=== PATIENT | female | born 1975 | race Caucasian/White ===

== ENCOUNTER → 2017-06-09 | Outpatient (CLI) | payer OTHER ==
[~2017-06-09] MED LIST: AMIT10TA PO; PENT100C2 PO; SHAKEOLOGY PO; TROS60CA3 PO
[2017-06-09 09:10] LABS: HEMATOCRIT 41.8 % (34.6-47.8); HEMOGLOBIN 14.1 g/dL (11.7-16.4); WHITE BLOOD COUNT 5.3 x10^3/uL (3.4-10)
[2017-06-09 09:15] LABS: PATH.CAST-FLAG NOT PRESENT; SPERM-FLAG NOT PRESENT; SRC-FLAG NOT PRESENT; XTAL-FLAG NOT PRESENT; YLC-FLAG NOT PRESENT
== END | disposition home or self-care (01) ==
LOC: STAR 08:07
PROVIDERS: ATTEND Obstetrics & Gynecology
DX: Z01.818 Encounter for other preprocedural examination (principal); N94.6 Dysmenorrhea, unspecified
CPT/HCPCS: 36415; 81001; 85025

== ENCOUNTER 2017-06-19 07:04 | Day surgery (SDC) | payer OTHER ==
[~2017-06-19] VITALS: Ht 165.1 cm; Wt 60.9 kg
[2017-06-19] MEDS ORDERED: EPINEPHRINE 1 MG/ML, 1ML ONE (07:32)
[2017-06-19] MEDS ORDERED: BUPIVACAINE/PF 0.25% ONE (07:32)
[2017-06-19] MEDS ORDERED: INDIGO CARMINE 0.8%, 5ML ONE (07:47)
[2017-06-19] MEDS ORDERED: FENTANYL PF 250 MCG/5ML ONE (07:49)
[2017-06-19] MEDS ORDERED: MIDAZOLAM 1 MG/ML, 2ML ONE (07:49)
[2017-06-19] MEDS ORDERED: DEXAMETHASONE 4 MG/ML, 1ML ONE (07:51)
[2017-06-19 07:52] LABS: HCG UR LOT HCG706132
[2017-06-19] MEDS ORDERED: LACTATED RINGERS 1,000 ML IV SCH (08:03)
[2017-06-19 08:09] LABS: HCG UR OBC PASS
[2017-06-19] MEDS ORDERED: GABAPENTIN 300 MG CAPSULE ONE (08:14)
[2017-06-19] MEDS ORDERED: ACETAMINOPHEN 500 MG TABLET ONE (08:15)
[2017-06-19] MEDS ORDERED: PROMETHAZINE 25 MG/ML, 1ML IV PRN (08:30)
[2017-06-19] MEDS ORDERED: ACETAMINOPHEN 500 MG TABLET PO ONE (08:30)
[2017-06-19] MEDS ORDERED: OXYcodone 5 MG/5 ML ORAL.SOL UDC PO PRN (08:30)
[2017-06-19] MEDS ORDERED: LABETALOL 5MG/ML, 20ML IV PRN (08:30)
[2017-06-19] MEDS ORDERED: ONDANSETRON 2MG/ML, 2ML IVPush PRN ×2 (08:30→13:00)
[2017-06-19] MEDS ORDERED: MEPERIDINE/PF 25MG/0.5ML IVPush PRN (08:30)
[2017-06-19] MEDS ORDERED: MIDAZOLAM 1 MG/ML, 2ML IV PRN (08:30)
[2017-06-19] MEDS ORDERED: GABAPENTIN 300 MG CAPSULE PO ONE (08:30)
[2017-06-19] MEDS ORDERED: HYDROmorphone 1 MG/ML, 1ML IV PRN (08:30)
[2017-06-19] MEDS ORDERED: NEOSTIGMINE 1 MG/ML, 10ML ONE (09:06)
[2017-06-19] MEDS ORDERED: CEFAZOLIN 1,000 MG ONE (09:06)
[2017-06-19] MEDS ORDERED: PROPOFOL 10 MG/ML, 20ML ONE (09:06)
[2017-06-19] MEDS ORDERED: ONDANSETRON 2MG/ML, 2ML ONE (09:06)
[2017-06-19] MEDS ORDERED: ROCURONIUM 10 MG/ML,10ML ONE (09:06)
[2017-06-19] MEDS ORDERED: FLUORESCEIN SODIUM 500 MG/5 ML ONE (09:43)
[2017-06-19] MEDS ORDERED: GLYCOPYRROLATE 0.4 MG/2 ML, 2ML ONE ×2 (10:36→10:37)
[2017-06-19] MEDS ORDERED: FENTANYL PF 100 MCG/2ML ONE (11:07)
[2017-06-19] MEDS ORDERED: OXYcodone 5 MG/5 ML ORAL.SOL UDC ONE (11:07)
[2017-06-19] MEDS: FENTANYL PF 100 MCG/2ML IV PRN ×4 (11:09→11:45)
[2017-06-19] MEDS ORDERED: IBUPROFEN 600 MG TABLET ONE (12:53)
[2017-06-19] MEDS ORDERED: PROMETHAZINE 12.5 MG SUPP PR ONE (13:00)
[2017-06-19] MEDS ORDERED: IBUPROFEN 600 MG TABLET PO SCH (13:00)
[2017-06-19] MEDS ORDERED: HYDROmorphone 2 MG/ML, 1ML IVPush PRN (13:00)
[2017-06-19] MEDS ORDERED: HYDROcodone/APAP 5/325 TABLET PO PRN (13:00)
[2017-06-19 15:00] LABS: HEMATOCRIT 35.4 % (34.6-47.8); HEMOGLOBIN 11.7 g/dL (11.7-16.4); WHITE BLOOD COUNT 8.2 x10^3/uL (3.4-10)
[2017-06-19] MEDS ORDERED: OXYcodone/APAP 5/325MG TABLET ONE (16:14)
[2017-06-19] MEDS ORDERED: OXYcodone/APAP 5/325MG TABLET PO PRN (16:30)
== END 2017-06-19 16:20 ==
LOC: OUT 07:04
PROVIDERS: ATTEND Obstetrics & Gynecology
DX: N92.0 Excessive and frequent menstruation with regular cycle (principal); N94.6 Dysmenorrhea, unspecified; Z98.890 Other specified postprocedural states
CPT/HCPCS: 36415; 52000; 58552; 81025; 85025; 86850; 86900; 88307; J0171; J0690; J1100; J2250; J2405; J2704; J2710; J3010; J3490; J7120